=== PATIENT | female | born 1945 | race Caucasian/White ===

== ENCOUNTER 2023-09-05 14:20 | Outpatient (CLI) | payer MEDICARE, BC, SELFPAY ==
[2023-09-05 14:42] VITALS: BP 147/63; PULSE 73; RESP 16; O2SAT 97
[2023-09-05 15:32] VITALS: BP 150/78; PULSE 71; RESP 16; O2SAT 95
== END 2023-09-05 15:52 | disposition home or self-care (01) ==
PROVIDERS: PCP Family Medicine; Visit Provider Family Medicine
DX: M70.62 Trochanteric bursitis, left hip (principal); M76.02 Gluteal tendinitis, left hip; M25.552 Pain in left hip
CPT/HCPCS: 27006; 76942